=== PATIENT | female | born 1990 | race Two or more races ===

== ENCOUNTER 2017-12-19 19:48 | Emergency (ER) | payer OTHER ==
[~2017-12-19] VITALS: Ht 149.9 cm; Wt 46.7 kg
[2017-12-19 19:57] VITALS: Ht 149.9 cm; Wt 46.7 kg
[2017-12-19 21:24] VITALS: BP 113/66
== END 2017-12-19 21:24 | disposition home or self-care (01) ==
LOC: ED 19:48
DX: S80.01XA Contusion of right knee, initial encounter (principal); S93.401A Sprain of unspecified ligament of right ankle, initial encounter; W01.0XXA Fall on same level from slipping, tripping and stumbling without subsequent striking against object, initial encounter; Y93.89 Activity, other specified; Y92.89 Other specified places as the place of occurrence of the external cause; Y99.8 Other external cause status

== ENCOUNTER 2017-12-30 14:36 | Emergency (ER) | payer OTHER ==
[~2017-12-30] VITALS: Ht 149.9 cm; Wt 45.4 kg
[2017-12-30 14:48] VITALS: Ht 149.9 cm; Wt 45.4 kg
[2017-12-30 16:24] LABS: BASOPHIL % 0.3 % (0-2); PLATELET COUNT 212 x10^3mcL (130-400); RED CELL DISTRIBUTION WIDTH 13.3 % (11.5-14.5)
[2017-12-30 16:37] LABS: CALCIUM 9.4 mg/dL (8.5-10.1); CARBON DIOXIDE 28.8 mmol/L (21-32); CHLORIDE SERUM 106 mmol/L (98-107); CREATININE SERUM 0.6 mg/dL (0.6-1.0); GFR1 > 60 mL/min; GLUCOSE SERUM 76 mg/dL (74-106); POTASSIUM SERUM 4.4 mmol/L (3.5-5.1); SODIUM SERUM 143 mmol/L (136-145)
[2017-12-30 16:41] VITALS: BP 103/56
[2017-12-30 16:43] LABS: ALBUMIN 4.2 g/dL (3.4-5.0); ALKALINE PHOSPHATASE 52 U/L (46-116); AMYLASE 77 U/L (25-115); AST/SGOT 12 U/L (15-37); BILIRUBIN TOTAL 0.72 mg/dL (0.20-1.00); LIPASE 118 IU/L (73-393); TOTAL PROTEIN, SERUM 7.5 g/dL (6.4-8.2)
[2017-12-30 16:52] LABS: ALT/SGPT 21 U/L (14-59)
== END 2017-12-30 16:41 | disposition home or self-care (01) ==
LOC: ED 14:36
PROVIDERS: Emergency Medicine
DX: R10.9 Unspecified abdominal pain (principal)
CPT/HCPCS: 36415; J1885